=== PATIENT | male | born 1995 | race Two or more races ===

== ENCOUNTER 2017-11-26 16:41 | Emergency (ER) | payer OTHER ==
[~2017-11-26] VITALS: Ht 175.3 cm; Wt 74.8 kg
[2017-11-26 16:46] VITALS: BP 143/93
[2017-11-26] MEDS ORDERED: IBUPROFEN 600 MG TABLET PO ONE ×2 (17:00→17:15)
== END 2017-11-26 18:17 | disposition home or self-care (01) ==
LOC: ER 16:47
DX: S13.4XXA Sprain of ligaments of cervical spine, initial encounter (principal); V43.92XA Unspecified car occupant injured in collision with other type car in traffic accident, initial encounter; Y93.89 Activity, other specified; Y92.413 State road as the place of occurrence of the external cause; Y99.8 Other external cause status
CPT/HCPCS: 72040-TC; A4606; Z7610